=== PATIENT | male | born 1995 | race Caucasian/White ===

== ENCOUNTER 2017-10-24 14:27 | Emergency (ER) | payer SELFPAY, OTHER ==
[2017-10-24] MEDS: LIDOCAINE 1% (MDV) 10 ML INJ INJ (16:09)
[2017-10-24] MEDS: DIPHTH/TET/ACEL PERTUSS (ADULT) 0.5 ML VIAL IM* (16:09)
== END 2017-10-24 17:08 | disposition home or self-care (01) ==
LOC: FTE 14:27
DX: S61.411A Laceration without foreign body of right hand, initial encounter (principal); W26.0XXA Contact with knife, initial encounter; Y92.9 Unspecified place or not applicable; Z23 Encounter for immunization
CPT/HCPCS: 12001; 90471; 90715; 99283-25